=== PATIENT | male | born 1960 | race American Indian/Alaskan Native ===

== ENCOUNTER 2018-08-16 12:36 | Emergency (ER) | payer BC ==
[2018-08-16 15:27] LABS: BASO # 0.1 K/uL (0.0-0.2); EOS # 0.1 K/uL (0.0-0.7); EOS % 1.7 % (0.0-4.0); HEMOGLOBIN 13.4 g/dL (12.0-18.0); LYMPH % 14.6 % (20.0-40.0); MEAN CELL VOLUME 90.6 fL (80.0-94.0); MEAN CORPUSCULAR HEMOGLOBIN 29.4 pg (27.0-31.0); MEAN CORPUSCULAR HGB CONC 32.5 g/dL (33.0-37.0); MEAN PLATELET VOLUME 9.5 fL (7.2-11.7); MONO # 0.7 K/uL (0.0-0.8); MONO % 10.3 % (0.0-10.0); NEUT % 72.4 % (50.0-75.0); RBC 4.54 Mil/uL (4.40-5.90); RED CELL DISTRIBUTION WIDTH 15.1 % (11.5-14.5)
[2018-08-16 15:29] LABS: SQUAMOUS EPITHIAL < 1 /hpf (0-5); URINE BILIRUBIN NEGATIVE (NEGATIVE); URINE BLOOD NEGATIVE (NEGATIVE); URINE CLARITY Clear (Clear); URINE COLOR Yellow (YELLOW); URINE GLUCOSE (UA) NORMAL (Normal); URINE LEUKOCYTE ESTERASE NEG Leu/uL (Negative); URINE PROTEIN NEGATIVE (NEGATIVE); URINE UROBILINOGEN NORMAL mg/dL (0.2-1.0)
--- NOTE | 2018-08-16 15:44 | C.PDOC ---
History Of Present Illness Patient is a 57 year old male, with a PMHx of uncontrolled HTN, who presents to the ED from his PMD's office where he was told his blood pressure was 230/130. Patient states that he went to his PMD's office for a cough, cold, and con gestion. He also states that he has not taken his blood pressure medications today. He denies any CP, SOB, fever, visual changes, numbness, or weakness. Time Seen by Provider: 08/16/18 14:27 Chief Complaint (Nursing): High Blood Pressure History Per: Patient History/Exam Limitations: no limitations Onset/Duration Of Symptoms: Hrs Current Symptoms Are (Timing): Still Present Associated Symptoms: denies: Chest Pain, Other (SOB, fever, visual changes, numbness, weakness) Recent travel outside of the [place]: No Additional History Per: Patient Past Medical History Reviewed: Historical Data, Nursing Documentation, Vital Signs Vital Signs: Last Vital Signs Temp 98.5 F 08/16/18 13:54 Pulse 72 08/16/18 13:54 Resp 20 08/16/18 13:54 BP 212/114 H 08/16/18 13:54 Pulse Ox 99 08/16/18 13:54 - Medical History PMH: HTN Surgical History: No Surg Hx Family History: States: Unknown Family Hx - Social History Hx Tobacco Use: No Hx Alcohol Use: Yes Hx Substance Use: No - Immunization History Hx Tetanus Toxoid Vaccination: Yes Hx Influenza Vaccination: No Hx Pneumococcal Vaccination: No Review Of Systems Constitutional: Negative for: Fever, Weakness Eyes: Negative for: Vision Change ENT: Positive for: Nose Congestion Cardiovascular: Negative for: Chest Pain Respiratory: Positive for: Cough. Negative for: Shortness of Breath Neurological: Negative for: Numbness Physical Exam - Physical Exam Appears: Non-toxic, No Acute Distress, Other (obese male ) Skin: Normal Color, Warm, Dry, No Rash Head: Atraumatic, Normacephalic Eye(s): bilateral: Normal Inspection Oral Mucosa: Moist Neck: Normal ROM, Supple Chest: Symmetrical, No Tenderness Cardiovascular: Rhythm Regular, No Friction Rub, No Murmur Respiratory: Normal Breath Sounds, No Rales, No Rhonchi, No Wheezing Gastrointestinal/Abdominal: Bowel Sounds (active), Soft, No Tenderness Extremity: Normal ROM, Capillary Refill (less than 2 seconds ), No Swelling Neurological/Psych: Oriented x3, Normal Speech, Normal Cognition, Normal Motor Gait: Steady ED Course And Treatment - Laboratory Results Result Diagrams: 08/16/18 15:15 08/16/18 15:15 Lab Results: Urine Color Yellow (YELLOW) 08/16/18 15:15 Urine Clarity Clear (Clear) 08/16/18 15:15 Urine pH 6.0 (5.0-8.0) 08/16/18 15:15 Ur Specific [place] 1.017 (1.003-1.030) 08/16/18 15:15 Urine Protein Negative mg/dL (NEGATIVE) 08/16/18 15:15 Urine Glucose (UA) Normal mg/dL (Normal) 08/16/18 15:15 Urine Ketones Negative mg/dL (NEGATIVE) 08/16/18 15:15 Urine Blood Negative (NEGATIVE) 08/16/18 15:15 Urine Nitrate Negative (NEGATIVE) 08/16/18 15:15 Urine Bilirubin Negative (NEGATIVE) 08/16/18 15:15 Urine Urobilinogen Normal mg/dL (0.2-1.0) 08/16/18 15:15 Ur Leukocyte Esterase Neg Ned/uL (Negative) 08/16/18 15:15 Urine WBC (Auto) 5 /hpf (0-5) 08/16/18 15:15 Urine RBC (Auto) 1 /hpf (0-3) 08/16/18 15:15 Ur Squamous Epith Cells < 1 /hpf (0-5) 08/16/18 15:15 O2 Sat by Pulse Oximetry: 99 (on RA) Pulse Ox Interpretation: Normal Medical Decision Making Medical Decision Making: Plan: Bloodwork and Urinalysis ordered and reviewed. Catapres 0.2mg Po and Norvasc 10mg PO given. Repeated pressure 214/106. Disposition - Disposition Referrals: Chun Dueñas MD, PhD [Staff Provider] - Disposition: HOME/ ROUTINE Disposition Time: 18:02 Condition: GOOD Additional Instructions: Follow up with the medical doctor within 1-2 days. return if worsened. Instructions: High Blood Pressure (DC) Forms: [employer] (Kinyarwanda) - Clinical Impression Clinical Impression: Hypertension - PA / FOOD COUNTER ATTENDANT / Resident Statement MD/DO has examined the patient and agrees with the treatment plan. - Scribe Statement The provider has reviewed the documentation as recorded by the Nelly Ohara All medical record entries made by the Nelly were at my direction and personally dictated by me. I have reviewed the chart and agree that the record accurately reflects my personal performance of the history, physical exam, medical decision making, and the department course for this patient. I have also personally directed, reviewed, and agree with the discharge instructions and disposition.
[2018-08-16 15:52] LABS: ALB/GLOB RATIO 1.3 (1.0-2.1); ALBUMIN 4.4 g/dL (3.5-5.0); ALT/SGPT 20 U/L (21-72); AST/SGOT 20 U/L (17-59); BLOOD UREA NITROGEN 13 mg/dL (9-20); CALCIUM 8.5 mg/dl (8.6-10.4); GFR NON-AFRICAN AMERICAN > 60
[2018-08-16 17:00] VITALS: TEMP 98.6
[2018-08-16 18:00] VITALS: BP 158/86; PULSE 76; RESP 18
[2018-08-16 18:04] VITALS: O2SAT 99
== END 2018-08-16 18:11 | disposition home or self-care (01) ==
LOC: C.ER 12:36
DX: I10 Essential (primary) hypertension (principal)